=== PATIENT | male | born 2000 | race Caucasian/White ===

== ENCOUNTER 2025-08-19 22:50 | Emergency (ER) | payer OTHER, MEDICAID ==
[~2025-08-19] VITALS: Ht 185.4 cm; Wt 85.0 kg
[2025-08-20 01:24] VITALS: BP 114/651
== END 2025-08-20 01:26 | disposition home or self-care (01) ==
LOC: ED 22:50
DX: S93.601A Unspecified sprain of right foot, initial encounter (principal); X50.1XXA Overexertion from prolonged static or awkward postures, initial encounter
CPT/HCPCS: 73630; 99283